=== PATIENT | male | born 1960 | race Caucasian/White ===

== ENCOUNTER 2019-08-01 16:18 | Outpatient (CLI) | payer OTHER, SELFPAY ==
--- NOTE | 2019-08-01 | ECG_ITS ---
Measurements Intervals [place] Rate: 59 P: 79 PA: 164 QRS: 77 QRSD: 84 T: 74 QT: 382 QTc: 380 Interpretive Statements SINUS BRADYCARDIA INCOMPLETE RIGHT BUNDLE BRANCH BLOCK ST ELEVATION IN ANTEROLAT/INF LEADS- PROBABLY EARLY REPOLARIZATION BASELINE ARTIFACT- I, III, AVL, V1-V2 BORDERLINE ECG Electronically Signed On 08-02-2019 10:34:11 CDT by Erich Wright D.O.
--- NOTE | ~2019-08-01 | XR_ITS ---
EXAMINATION: XR chest 2V DATE: 08/01/2019 17:02 INDICATION: Shortness of breath TECHNIQUE: PA and lateral views of the chest are obtained. COMPARISON: None available FINDINGS: The lungs are hyperinflated. There are opacities of the lung apices. The minor fissure appe ars to be cranially displaced. There is no pleural effusion or pneumothorax. The cardiomediastinal si lhouette is normal. There is mild thoracic spondylosis. A healed right ninth rib fracture is noted. IMPRESSION: 1. Opacities of the lung apices which likely reflect scarring. However, further evaluation with CT of the chest is recommended. Reviewed, dictated and finalized at location A.
== END 2019-08-01 16:19 | disposition home or self-care (01) ==
LOC: ANHIMG 16:23
PROVIDERS: PCP Family Medicine; Visit Provider Nurse Practitioner Family
DX: R06.02 Shortness of breath (principal); R07.9 Chest pain, unspecified; R91.8 Other nonspecific abnormal finding of lung field
CPT/HCPCS: 71046; 93005

== ENCOUNTER 2019-08-02 10:41 | Outpatient (CLI) | payer OTHER, SELFPAY ==
[2019-08-02 12:27] LABS: Basophils Absolute Auto 0.1 K/mm3 (0.0-0.1); Basophils Percent Auto 0.8 % (0.2-1.2); Eosinophils Absolute Auto 0.2 K/mm3 (0-0.3); Eosinophils Percent Auto 2.5 % (0-4.4); Hematocrit 40.1 % (42.0-52.0); Hemoglobin 12.9 g/dL (14.0-18.0); Immature Granulocyte Absolute 0.01 K/mm3 (0.00-0.031); Immature Granulocyte Percent A 0.2 % (0-0.5); Lymphocytes Absolute Auto 1.92 K/mm3 (0.9-3.2); Lymphocytes Percent Auto 32.4 % (18.3-44.2); Mean Corpuscular HGB Conc 32.2 g/dl (32-36); Mean Corpuscular Hemoglobin 30.9 pg (26-34); Mean Corpuscular Volume 95.9 fl (80-100); Mean Platelet Volume 10.5 fl (7.4-10.4); Monocytes Absolute Auto 0.4 K/mm3 (0.1-0.6); Monocytes Percent Auto 7.1 % (2.6-8.5); Neutrophils Absolute Auto 3.4 K/mm3 (1.3-6.7); Platelet Count Result 289 k/mm3 (150-375); Red Blood Count 4.18 M/mm3 (4.6-6.20); Red Cell Distribution Width 12.1 % (11.5-14.5); White Blood Count 5.9 K/mm3 (4.5-10.0)
[2019-08-02 13:21] LABS: Alanine Aminotransferase 10 U/L (4-50); Albumin Level 4.3 g/dL (3.5-5.1); Alkaline Phosphatase 55 U/L (38-126); Aspartate Amino Transferase 20 U/L (17-59); Bilirubin,Total 0.3 mg/dL (0.2-1.3); Blood Urea Nitrogen 15 mg/dL (9-20); Calcium 9.1 mg/dL (8.4-10.2); Carbon Dioxide 31 mmol/L (22-30); Chloride 106 mmol/L (98-107); Cholesterol 187 mg/dL (0-200); Estimated Glomerular Filt Rate > 60; Glucose 97 mg/dL (75-110); HDL Direct 45 mg/dL; Potassium 4.6 mmol/L (3.4-5.0); Sodium 140 mmol/L (137-145); Triglycerides 74 mg/dL (<150)
[2019-08-02 13:31] LABS: Vitamin D 25 Hydroxy 47.6 ng/mL
[2019-08-02 13:32] LABS: LDL Cholesterol Direct 116 mg/dL
[2019-08-02 18:13] LABS: Prostate Specific Antigen 0.8 ng/mL (< OR = 4.0)
== END 2019-08-02 10:42 | disposition home or self-care (01) ==
LOC: ANHLAB 10:42
PROVIDERS: PCP Family Medicine; Visit Provider Nurse Practitioner Family
DX: R53.83 Other fatigue (principal); Z13.29 Encounter for screening for other suspected endocrine disorder; R63.4 Abnormal weight loss; Z13.1 Encounter for screening for diabetes mellitus; Z13.220 Encounter for screening for lipoid disorders; Z12.5 Encounter for screening for malignant neoplasm of prostate
CPT/HCPCS: 36415; 80053; 80061; 82306; 82607; 84153; 84443; 85025; G0103

== ENCOUNTER 2020-01-01 14:03 | Emergency (ER) | payer MEDICAID, SELFPAY ==
[2020-01-01 14:05] VITALS: BP 120/60; PULSE 72; RESP 20; TEMP 36.4; O2SAT 100
--- NOTE | 2020-01-01 14:54 | ED.ABDPAIN ---
HPI - Abdominal Pain General Chief Complaint: Abdominal Pain Stated Complaint: diarrhea/abdominal pain/n/v Source: patient Mode of arrival: ambulatory Limitations: no limitations History of Present Illness HPI narrative: 59 y/o male. PMH includes: None reported. Presents to Urgent Care with complaints of > 30 pound weight loss in past 6 months, [place], as well as abdominal pain and loose stool for past 24 hours. He denies known fever, chills. No chest pain or dyspnea. Related Data Allergies Allergy/AdvReac Type Severity Reaction Status Date / Time No Known Allergies Allergy Verified 01/01/20 14:09 Review of Systems Review of Systems: Narrative: CONSTITUTIONAL: Denies fever, chills, sweats, Significant weight fluctuation. EYES: Denies visual changes, redness, discharge. ENT: Denies rhinorrhea, congestion, sore throat, otalgia. CARDIOVASCULAR: Denies chest pain, palpitations, edema. RESPIRATORY: Denies dyspnea, wheezing, cough GASTROINTESTINAL: Positive abdominal pain, nausea, vomiting, diarrhea. GENITOURINARY: Denies dysuria, hematuria, abnormal discharge SKIN: Denies rash or itching. MUSCULOSKELETAL: Denies acute back pain, joint pain, or myalgia. NEUROLOGIC: Denies numbness, or focal weakness. PSYCHIATRIC: Denies anxiety or depression. [facility] Family History Family History Father Hypertension Grandparent Family history of lung cancer Social History Social History Smoking status: Current every day smoker Tobacco type: cigarettes (1/2) Alcohol intake: current Exam Narrative: Exam Narrative: GENERAL: Frail/Thin. No apparent distress. HEAD: normocephalic, atraumatic. EYES: PERRL. Sclera clear/white. Vision is grossly intact. EARS: External ears normal, auditory canals clear and without drainage, TMs normal without perforation. Hearing grossly intact. NOSE: External nose normal with no obvious nasal discharge, nares without redness, no rhinorrhea. THROAT: Mucous membranes moist, posterior pharynx clear. NECK: Neck supple, non-tender without lymphadenopathy, masses or thyromegaly. CARDIOVASCULAR: Regular rate and rhythm without murmurs, gallops, or rubs. RESPIRATORY: Clear to auscultation. Breath sounds equal bilaterally. No wheezes, rales, or rhonchi. GASTROINTESTINAL: Abdomen soft, nondistended. Positive tenderness and guarding RUQ/RLQ. Bowel sounds are active. No hepato-splenomegaly, or palpable masses. SKIN: warm, intact with no suspicious lesions or rash, good texture and turgor. NEURO: awake, alert, and oriented to person, place and time. There were no obvious focal neurologic abnormalities. Steady gait EXTREMITIES: Normal range of motion. No edema. No calf tenderness. Negative Homans sign bilaterally. BACK: Nontender without deformity or crepitance. No flank tenderness. NEURO: Alert and oriented x4, GCS 15. Cranial nerves II through XII grossly intact. No focal neurological deficits. Normal muscle strength and tone. Normal deep tendon reflexes. Negative Babinski, normal finger to nose coordination he had normal heel to dunn glide. Speech is clear. Normal gait. Negative Romberg and no pronator drift. Course Course Emergency Course: N/V/D, Abdominal pain, and significant weight loss reported. This is a client whom requires more resources than I have available in the urgent care setting. He will be transferred to [place] ED for higher level of care. Client chooses to go by personal vehicle. He has been advised to proceed to [place] ED after departure. Pt agrees. Vital Signs Vital signs: Vital Signs Temperature 36.4 C 01/01/20 14:05 Pulse Rate 72 01/01/20 14:05 Respiratory Rate 20 01/01/20 14:05 Blood Pressure 120/60 01/01/20 14:05 Pulse Oximetry 100 01/01/20 14:05 Temperature 36.4 C 01/01/20 14:05 Pulse Rate 72 01/01/20 14:05 Respiratory Rate 20 01/01/20 14:05
== END 2020-01-01 15:00 | disposition short-term general hospital (02) ==
PROVIDERS: Emergency Provider Nurse Practitioner Adult Health
DX: R63.4 Abnormal weight loss (principal); R11.2 Nausea with vomiting, unspecified; R10.84 Generalized abdominal pain; F17.210 Nicotine dependence, cigarettes, uncomplicated
CPT/HCPCS: 99212; G0463

== ENCOUNTER 2020-01-01 16:18 | Emergency (ER) | payer MEDICAID, SELFPAY ==
--- NOTE | ~2020-01-01 | CT_ITS ---
EXAMINATION: CT abdomen pelvis w con DATE: 01/01/2020 20:15 INDICATION: Abdominal pain TECHNIQUE: Computed tomography (CT) of the abdomen and pelvis was performed with 100 mL Omnipaque-350 intravenous contrast. Automated exposure control and iterative reconstruction technique were employe d. The dose-length product was 207.87 mGy-cm. COMPARISON: None FINDINGS: Mild emphysema. Indeterminate 4 mm right lower lobe nodule. Heart size is normal. No pericardial or p leural effusion. 5 mm low-attenuation likely cyst or hemangioma at the dome of the liver. Gallbladder , pancreas and bilateral adrenal glands are normal. Subcentimeter splenic cyst. Bilateral renal cysts the largest measuring 1.5 cm in the right kidney. Proximal sigmoid diverticulum without adjacent inf lammatory change to suggest diverticulitis. Small bowel and appendix are normal. Bladder is normal. S mall central prostatic calcification. No free intraperitoneal gas or fluid. No pathologically enlarge d abdominal or pelvic lymphadenopathy.. There is calcified atherosclerosis of the aorta and many of t he other arteries. Mild lower lumbar levocurvature with mild spondylosis. IMPRESSION: 1. No acute intra-abdominal/pelvic process. 2. Mild emphysema with 4 mm right lower lobe nodule. Could consider optional 1 year follow-up low-dos e noncontrast chest CT. Reviewed, dictated and finalized at location . TEGIC ACCOUNT MANAGER IMPRESSION: 1. No acute intra-abdominal/pelvic process. 2. Mild emphysema with 4 mm right lower lobe nodule. Could consider optional 1 year follow-up low-dose noncontrast chest CT.
[2020-01-01 16:51] VITALS: BP 111/73; PULSE 76; RESP 18; TEMP 36.7; O2SAT 100
[2020-01-01 17:02] LABS: Basophils Absolute Auto 0.1 K/mm3 (0.0-0.1); Basophils Percent Auto 0.5 % (0.2-1.2); Eosinophils Absolute Auto 0.2 K/mm3 (0-0.3); Eosinophils Percent Auto 1.7 % (0-4.4); Hemoglobin 13.3 g/dL (14.0-18.0); Immature Granulocyte Absolute 0.03 K/mm3 (0.00-0.031); Immature Granulocyte Percent A 0.3 % (0-0.5); Lymphocytes Absolute Auto 1.83 K/mm3 (0.9-3.2); Lymphocytes Percent Auto 19.1 % (18.3-44.2); Mean Corpuscular HGB Conc 33.3 g/dl (32-36); Mean Corpuscular Hemoglobin 31.6 pg (26-34); Mean Platelet Volume 9.6 fl (7.4-10.4); Monocytes Absolute Auto 0.8 K/mm3 (0.1-0.6); Monocytes Percent Auto 8.2 % (2.6-8.5); Neutrophils Absolute Auto 6.7 K/mm3 (1.3-6.7); Neutrophils Percent Auto 70.2 % (45.5-73.1); Platelet Count Result 282 k/mm3 (150-375); Red Blood Count 4.21 M/mm3 (4.6-6.20); Red Cell Distribution Width 12.6 % (11.5-14.5); White Blood Count 9.6 K/mm3 (4.5-10.0)
[2020-01-01 17:20] LABS: Alanine Aminotransferase 13 U/L (4-50); Albumin Level 4.6 g/dL (3.5-5.1); Alkaline Phosphatase 62 U/L (38-126); Anion Gap 8 mmol/L (8-16); Aspartate Amino Transferase 24 U/L (17-59); Bilirubin,Total 0.7 mg/dL (0.2-1.3); Blood Urea Nitrogen 14 mg/dL (9-20); Calcium 9.6 mg/dL (8.4-10.2); Carbon Dioxide 29 mmol/L (22-30); Chloride 106 mmol/L (98-107); Estimated CRCL calculation 78 ml/min; Estimated Glomerular Filt Rate > 60; Glucose 96 mg/dL (75-110); Lipase 82 U/L (23-300); Potassium 4.2 mmol/L (3.4-5.0); Sodium 143 mmol/L (137-145)
[2020-01-01 19:02] LABS: Add Urine Microscopic? YES; Appearance Urine Clear (Clear); Bilirubin Urine Negative (Negative); Blood Urine 2+ (Negative); Color Urine Yellow (Yellow); Glucose Urine UA Negative (Negative); Ketones Urine Trace mg/dL (Negative); Leukocyte Esterase Ur Negative LEU/UL (Negative); Mucus Urine Heavy /lpf; Nitrate Urine Negative (Negative); Protein Urine 1+ mg/dL (Negative); Specific Grav Ur 1.029 (1.001-1.035); Squamous Epithelial Cell Urine Rare /hpf (Few); Urobilinogen Urine Negative mg/dL (<2.0)
[2020-01-01 19:44] VITALS: BP 143/85; PULSE 68; RESP 14; O2SAT 100
--- NOTE | 2020-01-01 20:25 | ED.GENADULT ---
HPI - General Adult General Chief complaint: Abdominal Pain Stated complaint: Abd pain-Sent from urgent care Time Seen by Provider: 01/01/20 19:57 Source: patient History of Present Illness HPI narrative: Patient is a 60 y/o male complaining of intermittent generalized abdominal pain for last 2 week. He describes his pain as aching and rates it as 10/10 at worst, but 4/10 currently. There is no alleviating or exacerbating factor. He also has some vomiting and diarrhea. He state that he lost 30 lbs over last 5 months. Review of Systems Constitutional: Constitutional: Denies chills, Denies fever(s), Denies headache(s), Denies weakness and Reports weight loss Eyes: Eyes: Denies blurry vision ENT: Denies headache(s) and Denies neck pain Cardiovascular: Cardiovascular: Denies chest pain and Denies dyspnea Respiratory: Respiratory: Denies cough and Denies dyspnea Gastrointestinal: Gastrointestinal: Reports abdominal pain, Reports diarrhea, Reports nausea and Reports vomiting Genitourinary: Genitourinary: Denies hematuria and Denies dysuria Musculoskeletal: Musculoskeletal: Denies back pain and Denies neck pain Neurologic: Denies headache(s) and Denies weakness Exam Const: General: no acute distress Nutritional Appearance: thin Orientation/consciousness: oriented to person, oriented to place, oriented to time and patient oriented x3 HENMT: Head: normocephalic Ears: external ears normal General nose exam: Normal external nose present Eyes: General: appearance normal, both eyes and all related structures Conjunctivae: conjunctivae normal Neck: Neck: normal visual inspection and full ROM Chest: Chest palpation & inspection: normal inspection of the chest and no tenderness Resp: Effort & Inspection: normal respiratory effort Auscultation: clear to auscultation bilaterally Cardio: Rate: regular rate Rhythm: regular rhythm GI: GI Palp: No abdominal tenderness and Yes Soft to palpation Skin: General skin exam: normal color and turgor normal Neuro: General: oriented to person, oriented to place, oriented to time and patient oriented x3 Cognition (Neuro): normal cognition Extrem: General: normal to inspection, full ROM and no pedal edema Psych: Appearance: grossly normal Mental Status: mental status grossly normal Affect: normal affect Course Reevaluation(s) Reevaluation #1: Informed patient about CT finding of lung nodule and the need for follow up. Date: 01/01/20 Time: 21:15 Consultations Consultation #1: Discussed with Dr. Stratton, who will follow up. Date: 01/01/20 Time: 21:24 Vital Signs Vital signs: Vital Signs Temperature 36.7 C 01/01/20 16:51 Pulse Rate 76 01/01/20 16:51 Respiratory Rate 18 01/01/20 16:51 Blood Pressure 111/73 01/01/20 16:51 Pulse Oximetry 100 01/01/20 16:51 Temperature 36.7 C 01/01/20 16:51 Pulse Rate 65 01/01/20 21:31 Respiratory Rate 18 01/01/20 21:31 Blood Pressure 112/65 01/01/20 21:31 Pulse Oximetry 100 01/01/20 21:31 Medical Decision Making Vital Signs Vital Signs: Vital Signs Temperature 36.7 C 01/01/20 16:51 Pulse Rate 76 01/01/20 16:51 Respiratory Rate 18 01/01/20 16:51 Blood Pressure 111/73 01/01/20 16:51 Pulse Oximetry 100 01/01/20 16:51 Temperature 36.7 C 01/01/20 16:51 Pulse Rate 65 01/01/20 21:31 Respiratory Rate 18 01/01/20 21:31 Blood Pressure 112/65 01/01/20 21:31 Pulse Oximetry 100 01/01/20 21:31 Lab Data Result diagrams: 01/01/20 16:54 01/01/20 16:54 Labs: Lab Results 01/01/20 01/01/20 01/01/20 Range/Units 16:54 16:54 18:46 WBC 9.6 (4.5-10.0) K/mm3 RBC 4.21 L (4.6-6.20) M/mm3 Hgb 13.3 L (14.0-18.0) g/dL Hct 40.0 L (42.0-52.0) % MCV 95.0 (80-100) fl MCH 31.6 (26-34) pg MCHC 33.3 (32-36) g/dl RDW 12.6 (11.5-14.5) % Plt Count 282 (150-375) k/mm3 MPV 9.6 (7.4-10.4) fl Immature Gran % (Auto) 0
[2020-01-01] MEDS: SODIUM CHLORIDE 0.9% IV 1,000 ML 999 ML IV CONT (20:46)
[2020-01-01 21:31] VITALS: BP 112/65; PULSE 65; RESP 18; O2SAT 100
== END 2020-01-01 21:54 | disposition home or self-care (01) ==
PROVIDERS: Emergency Medicine; Emergency Provider Emergency Medicine
DX: R10.84 Generalized abdominal pain (principal); R91.1 Solitary pulmonary nodule; R63.4 Abnormal weight loss; Z68.20 Body mass index [BMI] 20.0-20.9, adult
CPT/HCPCS: 36415; 74177; 80053; 81001; 83690; 85025; 99284; J7030; Q9967

== ENCOUNTER 2020-04-15 12:44 | Outpatient (CLI) | payer OTHER, SELFPAY ==
[2020-04-15 13:18] LABS: Hematocrit 39.5 % (42.0-52.0); Hemoglobin 12.9 g/dL (14.0-18.0); Mean Corpuscular HGB Conc 32.7 g/dl (32-36); Mean Corpuscular Hemoglobin 31.2 pg (26-34); Mean Corpuscular Volume 95.4 fl (80-100); Mean Platelet Volume 9.8 fl (7.4-10.4); Platelet Count Result 263 k/mm3 (150-375); Red Blood Count 4.14 M/mm3 (4.6-6.20); Red Cell Distribution Width 12.1 % (11.5-14.5); White Blood Count 6.1 K/mm3 (4.5-10.0)
[2020-04-15 13:29] LABS: Hemoglobin A1C 5.1 % (<5.7)
[2020-04-15 13:30] LABS: Alanine Aminotransferase 11 U/L (4-50); Albumin Level 4.5 g/dL (3.5-5.1); Alkaline Phosphatase 56 U/L (38-126); Anion Gap 2 mmol/L (8-16); Aspartate Amino Transferase 23 U/L (17-59); Bilirubin,Total 0.4 mg/dL (0.2-1.3); Blood Urea Nitrogen 11 mg/dL (9-20); Calcium 9.3 mg/dL (8.4-10.2); Carbon Dioxide 32 mmol/L (22-30); Chloride 107 mmol/L (98-107); Cholesterol 189 mg/dL (0-200); Estimated Glomerular Filt Rate > 60; Glucose 106 mg/dL (75-110); HDL Direct 55 mg/dL; Potassium 4.2 mmol/L (3.4-5.0); Sodium 141 mmol/L (137-145); Triglycerides 96 mg/dL (<150)
[2020-04-15 13:33] LABS: Rheumatoid Factor < 8.6 IU/ML (<12)
[2020-04-15 13:41] LABS: LDL Cholesterol Direct 104 mg/dL
[2020-04-15 14:00] LABS: Prostate Specific Antigen 0.8 ng/mL (< OR = 4.0)
[2020-04-15 14:01] LABS: Free T4 Free Thyroxine 0.73 ng/mL (0.78-2.19); Vitamin D 25 Hydroxy 35.9 ng/mL
[2020-04-15 14:11] LABS: HIV 1/2 Ab P24 Ag Result Negative (Negative)
[2020-04-15 14:16] LABS: Hepatitis B Surface Antigen Negative (Negative)
[2020-04-15 14:22] LABS: HAV RESULT Negative (Negative); Hepatitis B Core IgM Result Negative (Negative)
[2020-04-15 14:30] LABS: Erythrocyte Sedimentation Rate 16 mm/hr (0-20)
[2020-04-15 14:33] LABS: Hepatitis C Virus Antibody Negative (Negative)
[2020-04-16 10:19] LABS: Rapid Plasma Reagin Non-Reactive (NonReactive)
== END 2020-04-15 12:45 | disposition home or self-care (01) ==
LOC: ANHLAB 12:47
PROVIDERS: PCP Emergency Medicine; Visit Provider Emergency Medicine
DX: F32.9 Major depressive disorder, single episode, unspecified (principal); R63.4 Abnormal weight loss
CPT/HCPCS: 36415; 80053; 80061; 80074; 82306; 83036; 84153; 84439; 84443; 85027; 85652; 86038; 86430; 86592; 86703; G0432

== ENCOUNTER 2020-04-17 14:13 | Outpatient (CLI) | payer OTHER, SELFPAY ==
--- NOTE | ~2020-04-17 | XR_ITS ---
EXAMINATION: XR chest 2V DATE: 04/17/2020 15:31 INDICATION: Tobacco use. Shortness of breath. TECHNIQUE: Frontal and lateral views of the chest were obtained. COMPARISON: Chest CT 04/17/2020, chest 2 views 08/01/2019 FINDINGS: The lungs are hyperexpanded with lucencies in the upper lungs, consistent with emphysema. T here is symmetric scarring at the lung apices. No pleural effusion or pneumothorax. The heart size is normal. IMPRESSION: 1. Stable scarring at the lung apices. 2. Emphysema. Reviewed, dictated and finalized at location A. EY STRIPPER
--- NOTE | ~2020-04-17 | CT_ITS ---
EXAMINATION: CT lung screening DATE: 04/17/2020 15:21 INDICATION: History of tobacco use TECHNIQUE: Computed tomography (CT) of the chest was performed without intravenous contrast. The dose -length product was 77.94 mGy-cm. Automated exposure control and iterative reconstruction technique w ere employed. COMPARISON: Chest dated 08/01/2019. CT dated 01/01/2020 FINDINGS: There is mild mediastinal lymphadenopathy, likely reactive. No significant pleural or peric ardial effusion. There is mild atherosclerosis. Heart size is normal. There is moderate emphysema wit h scarring at the lung apices. There are blebs at the lung apices. There is right upper lobe bronchie ctasis. There is a 4 mm right lower lobe nodule, image 102. There is a 5 mm left upper lobe nodule, i mage 35. There is a 2 mm perifissural nodule of the major fissure on the right. There is a 2 mm left upper lobe nodule, image 55. No endobronchial lesions. IMPRESSION: 1. Lung-RADS category 2: Benign appearance or behavior. Continue annual screening with noncontrast lo w-dose chest CT in 12 months. Reviewed, dictated and finalized at location A. SHING MACHINE TENDER IMPRESSION: 1. Lung-RADS category 2: Benign appearance or behavior. Continue annual screeni ng with noncontrast low-dose chest CT in 12 months.
== END 2020-04-17 14:14 | disposition home or self-care (01) ==
PROVIDERS: PCP Emergency Medicine; Visit Provider Emergency Medicine
DX: Z12.2 Encounter for screening for malignant neoplasm of respiratory organs (principal); Z87.891 Personal history of nicotine dependence; J43.9 Emphysema, unspecified
CPT/HCPCS: 71046; 71271

== ENCOUNTER 2020-04-22 15:39 | Outpatient (CLI) | payer OTHER, SELFPAY ==
--- NOTE | ~2020-04-22 | US_ITS ---
US renal BI DATE: 04/22/2020 16:21 INDICATION: Bilateral renal cysts TECHNIQUE: Real-time imaging of kidneys and urinary bladder COMPARISON: 01/01/2020 CT abdomen pelvis FINDINGS: The right kidney measures approximately 10.3 cm length, left kidney 10.8 cm length. No hydr onephrosis of either kidney is evident. Occasional renal cysts are noted, measuring up to 1.4 cm approximately on the right, up to 10 mm on t he left The urinary bladder is unremarkable.. IMPRESSION: Bilateral renal cysts Reviewed, dictated and finalized at Location A. Reviewed, dictated and finalized at location A. IMPRESSION: Bilateral renal cysts
--- NOTE | ~2020-04-22 | US_ITS ---
EXAMINATION: US thyroid EXAM DATE: 04/22/2020 16:21 INDICATION: Abnormal thyroid function tests. Elevated T4. TECHNIQUE: Multiple grayscale and Doppler images of the thyroid were obtained (by a technologist who performed the scan) and subsequently reviewed. Individual nodules and recommendations may be reporte d in accordance with TI-RADS system as designated by the 2017 ACR White Paper TI-RADS committee. The re is no prior study for comparison. FINDINGS: The right thyroid lobe measures 4.4 x 1.3 x 1.4 cm, the left measuring 4.2 x 0.1 x 1.0 cm. This is wi thin normal size limits. There is homogeneous thyroid echogenicity without focal nodule identified. S omewhat prominent thyroid vascularity, nonspecific. IMPRESSION: 1. Unremarkable thyroid ultrasound exam. Reviewed, dictated and finalized at location A.
[2020-04-22 17:16] LABS: Iron 102 ug/dL (49-181)
[2020-04-22 17:25] LABS: Percent Iron Saturation 41 % (20-50)
[2020-04-26 05:54] LABS: Triiodothyronine T3 Free 3.1 pg/mL (2.3-4.2)
[2020-04-27 03:12] LABS: Thyroid Peroxidase Antibodies 1 IU/mL (<9)
== END 2020-04-22 15:40 | disposition home or self-care (01) ==
PROVIDERS: PCP Emergency Medicine; Visit Provider Emergency Medicine
DX: N28.1 Cyst of kidney, acquired (principal); D64.9 Anemia, unspecified
CPT/HCPCS: 36415; 76536; 76775; 83540; 83550; 84481; 86376

== ENCOUNTER 2020-05-21 08:32 | Outpatient (CLI) | payer OTHER, SELFPAY ==
[2020-05-21 09:51] LABS: Free T4 Free Thyroxine 0.64 ng/mL (0.78-2.19)
[2020-05-24 05:06] LABS: Thyroid Peroxidase Antibodies <1 IU/mL (<9)
[2020-05-24 07:19] LABS: Triiodothyronine T3 Free 3.1 pg/mL (2.3-4.2)
== END 2020-05-21 08:33 | disposition home or self-care (01) ==
PROVIDERS: PCP Emergency Medicine; Visit Provider Emergency Medicine
DX: R63.4 Abnormal weight loss (principal); R31.9 Hematuria, unspecified; D64.9 Anemia, unspecified
CPT/HCPCS: 84439; 84443; 84481; 86376

== ENCOUNTER 2020-08-30 13:36 | Outpatient (CLI) | payer OTHER, SELFPAY ==
--- NOTE | ~2020-08-30 | XR_ITS ---
XR hand LT min 3V DATE: 08/30/2020 14:10 INDICATION: Pain, left thumb TECHNIQUE: 4 views COMPARISON: 05/02/2014 left first digit FINDINGS: There is chronic dorsal displacement at the interphalangeal joint of the first digit with f usion of the proximal and distal phalanges. Dorsal displacement is noted at this joint on 05/02/2014. There is interval fusion since then. No other fracture or dislocation or any periosteal reaction or bone destruction, erosive change or ch ondrocalcinosis is evident. 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
--- NOTE | ~2020-08-30 | XR_ITS ---
XR tibia fibula LT 2V DATE: 08/30/2020 14:10 INDICATION: Swelling and pain TECHNIQUE: AP and lateral views COMPARISON: None FINDINGS: No fracture, dislocation, periosteal reaction or bone destruction. IMPRESSION: Negative Reviewed, dictated and finalized at location A. IMPRESSION: Negative
--- NOTE | ~2020-08-30 | XR_ITS ---
XR tibia fibula RT 2V DATE: 08/30/2020 14:10 INDICATION: Pain and swelling TECHNIQUE: AP and lateral views COMPARISON: None FINDINGS: No fracture or dislocation, periosteal reaction or bone destruction. IMPRESSION: Negative Reviewed, dictated and finalized at location A. IMPRESSION: Negative
--- NOTE | ~2020-08-30 | XR_ITS ---
XR shoulder RT min 2V DATE: 08/30/2020 14:10 INDICATION: Right shoulder pain TECHNIQUE: 4 views COMPARISON: None FINDINGS: No fracture or dislocation, periosteal reaction or bone destruction or abnormal soft tissue calcification. IMPRESSION: Negative Reviewed, dictated and finalized at location A. IMPRESSION: Negative
--- NOTE | ~2020-08-30 | XR_ITS ---
XR shoulder LT min 2V DATE: 08/30/2020 14:10 INDICATION: Left shoulder pain TECHNIQUE: 4 views COMPARISON: None FINDINGS: There is mild osteoarthritis at the left glenohumeral joint. No fracture or dislocation, periosteal reaction or bone destruction of the left shoulder abnormal lef t shoulder soft tissue calcification. IMPRESSION: Mild left glenohumeral osteoarthritis Reviewed, dictated and finalized at location A.
== END 2020-08-30 13:37 | disposition home or self-care (01) ==
LOC: ANHIMG 13:39
PROVIDERS: PCP Emergency Medicine; Visit Provider Emergency Medicine
DX: M79.89 Other specified soft tissue disorders (principal); M19.012 Primary osteoarthritis, left shoulder
CPT/HCPCS: 73030; 73130; 73590

== ENCOUNTER 2020-09-12 14:02 | Outpatient (CLI) | payer OTHER, SELFPAY ==
--- NOTE | ~2020-09-12 | US_ITS ---
EXAMINATION: US art doppler w press DIMITRIOS DATE: 09/12/2020 14:51 INDICATION: Claudication. TECHNIQUE: Segmental pressures and plethysmographic and Doppler waveforms of the brachial and lower e xtremity arteries were obtained. COMPARISON: None. FINDINGS: Right and left brachial artery pressures of 98 mm Hg and 103 mm Hg, respectively, are concordant (nor mal difference <= 30 mmHg). The right high-thigh pressure index is 1.12 (normal > 1.2). The right ankle-brachial index (RONALD) is 1 .27 (normal >= 0.9-1.0). The right great toe-brachial index (TBI) is 0.96 (normal >= 0.65). Arterial Doppler waveforms are at least triphasic from common femoral artery to popliteal artery and biphasic at the ankle. The left high-thigh pressure index is 1.21. The left RONALD is 1.16. The left TBI is 0.88. Arterial Dopp ler waveforms are at least triphasic from common femoral artery to posterior tibial artery and biphas ic in dorsalis pedis. IMPRESSION: 1. No significant arterial occlusive disease. Reviewed, dictated and finalized at location A.
== END 2020-09-12 14:03 | disposition home or self-care (01) ==
LOC: ANHIMG 14:09
PROVIDERS: PCP Emergency Medicine; Visit Provider Emergency Medicine
DX: M79.89 Other specified soft tissue disorders (principal); M79.652 Pain in left thigh
CPT/HCPCS: 93923

== ENCOUNTER 2020-09-27 08:43 | Outpatient (CLI) | payer OTHER, SELFPAY ==
--- NOTE | ~2020-09-27 | US_ITS ---
EXAMINATION: US venous doppler [facility] DATE: 09/27/2020 09:20 INDICATION: Bilateral lower limb pain TECHNIQUE: Grayscale ultrasound images without and with compression and Doppler ultrasound images of the bilateral lower extremity veins were obtained. COMPARISON: None. FINDINGS: The visualized portions of right common femoral vein, profunda (deep) femoral vein, femoral vein, pop liteal vein, posterior tibial veins, peroneal veins, gastrocnemius vein and greater saphenous vein ou tflow are patent. The visualized portions of left common femoral vein, profunda femoral vein, femoral vein, popliteal v ein, posterior tibial veins, peroneal veins, gastrocnemius vein and greater saphenous vein outflow ar e patent. IMPRESSION: 1. No deep venous thrombosis in either lower limb. Reviewed, dictated and finalized at location A.
== END 2020-09-27 08:44 | disposition home or self-care (01) ==
LOC: ANHIMG 08:47
PROVIDERS: PCP Emergency Medicine; Visit Provider Emergency Medicine
DX: M79.661 Pain in right lower leg (principal); M79.662 Pain in left lower leg
CPT/HCPCS: 93970

== ENCOUNTER 2020-12-18 11:01 | Outpatient (CLI) | payer OTHER, SELFPAY ==
[2020-12-18 11:18] LABS: Basophils Absolute Auto 0.1 K/mm3 (0.0-0.1); Basophils Percent Auto 0.9 % (0.2-1.2); Eosinophils Absolute Auto 0.2 K/mm3 (0-0.3); Eosinophils Percent Auto 2.7 % (0-4.4); Hematocrit 38.6 % (42.0-52.0); Hemoglobin 12.5 g/dL (14.0-18.0); Immature Granulocyte Absolute 0.01 K/mm3 (0.00-0.031); Immature Granulocyte Percent A 0.1 % (0-0.5); Lymphocytes Absolute Auto 1.56 K/mm3 (0.9-3.2); Lymphocytes Percent Auto 22.4 % (18.3-44.2); Mean Corpuscular HGB Conc 32.4 g/dl (32-36); Mean Corpuscular Hemoglobin 31.3 pg (26-34); Mean Corpuscular Volume 96.5 fl (80-100); Mean Platelet Volume 9.5 fl (7.4-10.4); Monocytes Absolute Auto 0.5 K/mm3 (0.1-0.6); Monocytes Percent Auto 6.9 % (2.6-8.5); Neutrophils Absolute Auto 4.7 K/mm3 (1.3-6.7); Platelet Count Result 264 k/mm3 (150-375); Red Cell Distribution Width 12.1 % (11.5-14.5)
[2020-12-18 11:49] LABS: Alanine Aminotransferase 19 U/L (4-50); Albumin Level 4.5 g/dL (3.5-5.1); Alkaline Phosphatase 61 U/L (38-126); Anion Gap 4 mmol/L (8-16); Aspartate Amino Transferase 37 U/L (17-59); Bilirubin,Total 0.5 mg/dL (0.2-1.3); Blood Urea Nitrogen 13 mg/dL (9-20); Calcium 9.3 mg/dL (8.4-10.2); Carbon Dioxide 32 mmol/L (22-30); Chloride 107 mmol/L (98-107); Estimated Glomerular Filt Rate > 60; Glucose 97 mg/dL (65-110); Potassium 4.5 mmol/L (3.4-5.0); Sodium 143 mmol/L (137-145)
[2020-12-18 12:28] LABS: Iron 76 ug/dL (49-181)
[2020-12-18 12:38] LABS: Percent Iron Saturation 30 % (20-50)
[2020-12-18 13:08] LABS: Folic Acid 11.2 ng/mL (2.76->20)
== END 2020-12-18 11:02 | disposition home or self-care (01) ==
LOC: ANHLAB 11:04
PROVIDERS: PCP Emergency Medicine; Visit Provider Internal Medicine Hematology & Oncology
DX: D64.9 Anemia, unspecified (principal)
CPT/HCPCS: 36415; 80053; 82607; 82728; 82746; 83540; 83550; 85025

== ENCOUNTER 2021-06-25 10:23 | Outpatient (CLI) | payer OTHER, SELFPAY ==
[2021-06-25 11:20] LABS: Hemoglobin A1C 5.1 % (<5.7)
[2021-06-25 11:34] LABS: Alanine Aminotransferase 10 U/L (6-50); Albumin Level 4.1 g/dL (3.5-5.1); Alkaline Phosphatase 55 U/L (38-126); Anion Gap 4 mmol/L (8-16); Aspartate Amino Transferase 23 U/L (17-59); Bilirubin,Total 0.3 mg/dL (0.2-1.3); Blood Urea Nitrogen 16 mg/dL (9-20); Calcium 8.6 mg/dL (8.4-10.2); Carbon Dioxide 26 mmol/L (22-30); Chloride 107 mmol/L (98-107); Estimated Glomerular Filt Rate > 60; Glucose 72 mg/dL (65-110); Potassium 4.2 mmol/L (3.4-5.0); Sodium 137 mmol/L (137-145)
[2021-06-25 12:02] LABS: Appearance Urine Clear (Clear); Bilirubin Urine Negative (Negative); Blood Urine 2+ (Negative); Color Urine Yellow (Yellow); Glucose Urine UA Negative (Negative); Ketones Urine Negative (Negative); Leukocyte Esterase Ur Negative LEU/UL (NEGATIVE); Nitrate Urine Negative (Negative); Protein Urine Negative (Negative); Specific Grav Ur 1.025 (1.001-1.035); Urobilinogen Urine 0.2 mg/dL (<2.0); pH Urine 5.5 (5.0-9.0)
[2021-06-25 12:05] LABS: Prostate Specific Antigen 0.7 ng/mL (< OR = 4.0)
[2021-06-25 12:17] LABS: Mucus Urine Heavy /lpf; Squamous Epithelial Cell Urine Rare /hpf (Few); WBC Urine 0-3 /hpf (0-3)
[2021-06-25 12:31] LABS: Add Urine Microscopic? YES
[2021-06-25 14:17] LABS: Free T4 Free Thyroxine 0.73 ng/mL (0.78-2.19); Vitamin D 25 Hydroxy 23.5 ng/mL
== END 2021-06-25 10:24 | disposition home or self-care (01) ==
LOC: ANHLAB 10:26
PROVIDERS: PCP Emergency Medicine; Visit Provider Emergency Medicine
DX: J43.9 Emphysema, unspecified (principal); R91.1 Solitary pulmonary nodule; N28.1 Cyst of kidney, acquired
CPT/HCPCS: 36415; 80053; 81001; 82306; 83036; 84153; 84439; 84443

== ENCOUNTER 2021-09-18 08:11 | Outpatient (CLI) | payer OTHER, SELFPAY ==
--- NOTE | ~2021-09-18 | DEXA_ITS ---
Bone Density Report Name: ANDRZEJ BEASLEY Age: 61 Sex: Male Ethnicity: White Date of : 1960 Indication: asthma or emphysema; Referring Provider: CAYDEN MENDOSA Study: Bone densitometry was performed. Exam Date: September 18, 2021 Accession number: [id number] Bone Density: Region BMD T-score Z-score Classification AP Spine(L1-L4) 1.067 -0.2 0.5 Normal Femoral Neck (Left) 0.682 -1.8 -0.8 Osteopenia Total Hip (Left) 0.788 -1.6 -1.1 Osteopenia Femoral Neck (Right) 0.720 -1.5 -0.6 Osteopenia Total Hip (Right) 0.802 -1.5 -1.1 Osteopenia Total Hip Mean 0.795 -1.6 -1.1 Osteopenia World Health Organization criteria for BMD impression classify patients as: Normal (T-score at or above -1.0), Osteopenia (T-score between -1.0 and -2.5), or Osteoporosis (T-score at or below -2.5). 10-year Fracture Risk(1): Major Osteoporotic Fracture 5.6% Hip Fracture 1.6% Reported Risk Factors: [place] (), Neck BMD=0.682, BMI=18.1, smoking (1) FRAX(R) Version 3.08. Fracture probability calculated for an untreated patient. Fracture probability may be lower if the patient has received treatment. Clinical Information Provided by Patient: Smokes Has used the following medications: Vitamin D Has the following medical conditions: Asthma or Emphysema Patient maximum height was 74 Does not regularly consume dairy products Impression: The patient has low bone mass, based on the Left Femoral Neck T-score. The patient has an estimated ten-year risk of hip fracture of 1.6% and an estimated ten-year risk of major fracture of 5.6%, based on the WHO FRAX algorithm. The patient has risk factors, including: smoking. Discussion: BONE DENSITY IS LOW AT ONE OR MORE SKELETAL SITES. This patient's lowest T-score is low at one or more skeletal sites. It meets the World Health Organization's (WHO) criteria for ?low bone mass? (T-score between -1.0 and -2.5). The patient's 10-year risk of fracture as calculated by FRAX is less than the threshold where pharmacological therapy is recommended by the National Osteoporosis Foundation (NOF). However, all treatment decisions require clinical judgment and consideration of individual patient factors, including patient preferences, comorbidities, previous drug use, risk factors not captured in the FRAX model (e.g., frailty, falls, vitamin D deficiency, increased bone turnover, interval significant decline in bone density) and possible under or overestimation of fracture risk by FRAX. The patient should follow a healthful lifestyle (good nutrition with adequate calcium and vitamin D, and appropriate weight-bearing exercise). Follow-Up: Consider repeating this study in 2 to 3 years to reassess this patient's status, or sooner if there is some new clinical indication. Reported by:
== END 2021-09-18 08:12 | disposition home or self-care (01) ==
PROVIDERS: PCP Emergency Medicine; Visit Provider Emergency Medicine
DX: M85.852 Other specified disorders of bone density and structure, left thigh (principal); M85.851 Other specified disorders of bone density and structure, right thigh
CPT/HCPCS: 77080

== ENCOUNTER 2022-12-29 13:23 | Outpatient (CLI) | payer OTHER, SELFPAY ==
--- NOTE | ~2022-12-29 | XR_ITS ---
EXAMINATION: XR femur RT min 2V INDICATION: Right leg pain TECHNIQUE: Two views of the right tibia are obtained on five radiographs. COMPARISON: None available FINDINGS: No fracture, dislocation, or subluxation. The bones, soft tissues, and joint spaces are nor mal. IMPRESSION: 1. No acute osseous abnormality. Reviewed, dictated and finalized at location F. SEAT TRIMMER
--- NOTE | ~2022-12-29 | XR_ITS ---
EXAMINATION: XR femur LT min 2V INDICATION: Left leg pain TECHNIQUE: Two views of the left femur are obtained on four radiographs. COMPARISON: None available FINDINGS: No fracture, dislocation, or subluxation. The bones, soft tissues, and joint spaces are nor mal. IMPRESSION: 1. No acute osseous abnormality. Reviewed, dictated and finalized at location F. ETING AND COMMUNICATIONS OFFICER
--- NOTE | ~2022-12-29 | XR_ITS ---
EXAMINATION: XR hip BI wo pelvis INDICATION: Bilateral lower limb pain TECHNIQUE: Two views of each hip are obtained. COMPARISON: None available FINDINGS: Bone alignment is normal. There is no fracture. The soft tissues are unremarkable. IMPRESSION: 1. No acute osseous abnormality. Reviewed, dictated and finalized at location F. IDE MACHINIST HELPER
[2022-12-29 15:00] LABS: Hematocrit 40.1 % (42.0-52.0); Hemoglobin 12.4 g/dL (14.0-18.0); Mean Corpuscular HGB Conc 30.9 g/dl (32-36); Mean Corpuscular Hemoglobin 30.8 pg (26-34); Mean Corpuscular Volume 99.5 fl (80-100); Mean Platelet Volume 10.3 fl (7.4-10.4); Platelet Count Result 282 k/mm3 (150-375); Red Blood Count 4.03 M/mm3 (4.6-6.20); Red Cell Distribution Width 12.5 % (11.5-14.5); White Blood Count 7.9 K/mm3 (4.5-10.0)
[2022-12-29 15:36] LABS: Free T4 Free Thyroxine 0.92 ng/mL (0.78-2.19); Vitamin D 25 Hydroxy 39.1 ng/mL
[2022-12-29 17:34] LABS: Alanine Aminotransferase 14 U/L (6-50); Albumin Level 4.3 g/dL (3.5-5.1); Alkaline Phosphatase 51 U/L (38-126); Amylase 96 U/L (30-110); Anion Gap 8 mmol/L (8-16); Aspartate Amino Transferase 25 U/L (17-59); Bilirubin,Total 0.5 mg/dL (0.2-1.3); Blood Urea Nitrogen 12 mg/dL (9-20); Calcium 9.3 mg/dL (8.4-10.2); Carbon Dioxide 29 mmol/L (22-30); Chloride 106 mmol/L (98-107); Cholesterol 222 mg/dL (0-200); Creatine Kinase 115 U/L (55-170); Estimated Glomerular Filt Rate > 60; Glucose 80 mg/dL (65-110); HDL Direct 51 mg/dL; Lipase 88 U/L (23-300); Potassium 4.5 mmol/L (3.4-5.0); Sodium 143 mmol/L (137-145); Triglycerides 154 mg/dL (<150)
[2022-12-29 17:47] LABS: LDL Cholesterol Direct 130 mg/dL
[2022-12-29 18:11] LABS: Prostate Specific Antigen 0.8 ng/mL (< OR = 4.0)
[2022-12-29 22:08] LABS: Hemoglobin A1C 5.2 % (<5.7)
[2022-12-31 13:00] LABS: Albumin 4.2 g/dL (3.8-4.8); Alpha 1 Globulin 0.3 g/dL (0.2-0.3); Alpha 2 Globulin 0.8 g/dL (0.5-0.9); Beta 1 Globulin 0.4 g/dL (0.4-0.6); Gamma Globulin 0.8 g/dL (0.8-1.7); Protein, Total 6.8 g/dL (6.1-8.1)
== END 2022-12-29 13:24 | disposition home or self-care (01) ==
PROVIDERS: PCP Emergency Medicine; Visit Provider Emergency Medicine
DX: M79.661 Pain in right lower leg (principal); M79.662 Pain in left lower leg; M54.50 Low back pain, unspecified; F32.9 Major depressive disorder, single episode, unspecified; R10.9 Unspecified abdominal pain; R11.0 Nausea
CPT/HCPCS: 36415; 73521; 73552; 80053; 80061; 82150; 82306; 82550; 83036; 83690; 84153; 84155; 84165; 84439; 84443; 85027; G0103

== ENCOUNTER 2023-03-02 13:59 | Outpatient (CLI) | payer OTHER, SELFPAY ==
[2023-03-02 14:18] LABS: Basophils Absolute Auto 0.1 K/mm3 (0.0-0.1); Basophils Percent Auto 0.8 % (0.2-1.2); Eosinophils Absolute Auto 0.2 K/mm3 (0-0.3); Eosinophils Percent Auto 2.6 % (0-4.4); Hematocrit 40.9 % (42.0-52.0); Hemoglobin 13.3 g/dL (14.0-18.0); Immature Granulocyte Absolute 0.02 K/mm3 (0.00-0.031); Immature Granulocyte Percent A 0.2 % (0-0.5); Lymphocytes Absolute Auto 2.08 K/mm3 (0.9-3.2); Lymphocytes Percent Auto 23.5 % (18.3-44.2); Mean Corpuscular HGB Conc 32.5 g/dl (32-36); Mean Corpuscular Hemoglobin 31.7 pg (26-34); Mean Corpuscular Volume 97.4 fl (80-100); Mean Platelet Volume 9.8 fl (7.4-10.4); Monocytes Absolute Auto 0.7 K/mm3 (0.1-0.6); Monocytes Percent Auto 7.8 % (2.6-8.5); Neutrophils Absolute Auto 5.8 K/mm3 (1.3-6.7); Neutrophils Percent Auto 65.1 % (45.5-73.1); Platelet Count Result 306 k/mm3 (150-375); Red Cell Distribution Width 12.4 % (11.5-14.5); White Blood Count 8.9 K/mm3 (4.5-10.0)
[2023-03-02 16:33] LABS: Iron 91 ug/dL (49-181)
[2023-03-02 16:37] LABS: Alanine Aminotransferase 13 U/L (6-50); Albumin Level 4.2 g/dL (3.5-5.1); Alkaline Phosphatase 63 U/L (38-126); Anion Gap 6 mmol/L (8-16); Aspartate Amino Transferase 22 U/L (17-59); Bilirubin,Total 0.4 mg/dL (0.2-1.3); Blood Urea Nitrogen 18 mg/dL (9-20); Calcium 9.3 mg/dL (8.4-10.2); Carbon Dioxide 27 mmol/L (22-30); Chloride 105 mmol/L (98-107); Estimated Glomerular Filt Rate > 60; Glucose 88 mg/dL (65-110); Lactate Dehydrogenase 177 U/L (120-246); Potassium 4.4 mmol/L (3.4-5.0); Sodium 138 mmol/L (137-145)
[2023-03-02 16:47] LABS: Percent Iron Saturation 37 % (20-50)
[2023-03-02 17:55] LABS: Folic Acid 5.6 ng/mL (2.76->20)
[2023-03-04 22:44] LABS: Methylmalonic Acid 122 nmol/L (87-318)
== END 2023-03-02 14:00 | disposition home or self-care (01) ==
LOC: ANHLAB 14:02
PROVIDERS: PCP Emergency Medicine; Visit Provider Internal Medicine Hematology & Oncology
DX: D64.9 Anemia, unspecified (principal)
CPT/HCPCS: 36415; 80053; 82607; 82728; 82746; 83540; 83550; 83615; 83921; 84238; 85025